=== PATIENT | male | born 1955 | race Caucasian/White ===

== ENCOUNTER 2018-11-05 14:36 | Emergency (ER) | payer BC, OTHER ==
[~2018-11-05] VITALS: Ht 170.2 cm; Wt 108.9 kg
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
[2018-11-05] MEDS ORDERED: PROP20TA5 PO (15:59)
--- NOTE | 2018-11-05 16:32 | Diagnostic Imaging Report ---
PROCEDURE: CT head without contrast. TECHNIQUE: Multiple contiguous axial images were obtained through the brain without the use of intravenous contrast. INDICATION: Left arm tremor. COMPARISON: There are no prior studies available for comparison. FINDINGS: There is no mass, shift of the midline, or hemorrhage to suggest an acute intracranial abnormality. The normal tentorial blush is noted. There is no sign of an asymmetric hyperdense vessel. The ventricles are not abnormally dilated. There is cortical atrophy present. The degree of atrophy is consistent with the patient's age. The bone windows show no sign of a fracture or of a destructive lesion. The orbits and sinuses were not visualized in their entirety. Where visualized, there is no acute abnormality. IMPRESSION: 1. There is no evidence for an acute intracranial abnormality. 2. If clinical concern regarding an underlying abnormality persists, then MRI would be recommended for further study. 3. These results were discussed with Nader Sandoval APRN. Dictated by: Dictated on workstation # [id number]
[2018-11-05 16:52] VITALS: BP 139/84
== END 2018-11-05 16:52 | disposition home or self-care (01) ==
LOC: ER 14:38
DX: R25.1 Tremor, unspecified (principal); I10 Essential (primary) hypertension; K21.9 Gastro-esophageal reflux disease without esophagitis; Z90.49 Acquired absence of other specified parts of digestive tract
CPT/HCPCS: 70450

== ENCOUNTER → 2018-12-14 | Outpatient (CLI) | payer BC ==
[~2018-12-14] MED LIST: GADOBUTROL 10 MMOL/10 ML (GADAVIST) VIAL IV ONE; PROP20TA5 PO
[2018-12-14 15:05] LABS: BUN/CREATININE RATIO 16; CREATININE SERUM 0.89 MG/DL (0.60-1.30); GFR ESTIMATED > 60
--- NOTE | 2018-12-14 15:30 | Diagnostic Imaging Report ---
PROCEDURE: MR imaging of the brain without contrast. TECHNIQUE: Multiplanar, multisequence MR imaging of the brain was performed without contrast. INDICATION: Left arm and left shoulder pain. COMPARISON: No prior MRI studies are available for comparison. FINDINGS: The ventricles and sulci are within normal limits. No sulcal effacement or midline shift is seen. No acute intra-axial or extra-axial hemorrhage is identified. No diffusion restriction is seen. The normal expected flow-voids within the carotid siphons are identified. The corpus callosum is unremarkable. The sella and parasellar structures are unremarkable. IMPRESSION: Unremarkable noncontrast CT of the brain. No acute abnormality is identified. Dictated by: Dictated on workstation # [id number]
== END ==
LOC: RAD 14:17
PROVIDERS: ATTEND Psychiatry & Neurology Neurology
DX: R53.1 Weakness (principal); R20.2 Paresthesia of skin
CPT/HCPCS: 36415; 70551; 82565; 84520

== ENCOUNTER → 2020-12-17 | Outpatient (CLI) | payer BC ==
[~2020-12-17] MED LIST changes: -GADOBUTROL 10 MMOL/10 ML (GADAVIST) VIAL IV ONE
--- NOTE | 2020-12-17 11:37 | Diagnostic Imaging Report ---
INDICATION: Cough. Shortness of breath. No previous for comparison. FINDINGS: PA and lateral views. The lungs are well-aerated and clear. The heart is not enlarged. No pulmonary edema or hilar adenopathy. No pneumothorax or pleural effusion. No bony abnormalities. IMPRESSION: Normal PA and lateral chest. Dictated by: Dictated on workstation # [id number]
== END ==
LOC: RAD FS 11:06
PROVIDERS: ATTEND Nurse Practitioner Family
DX: R05 Cough (principal); R06.02 Shortness of breath; R06.00 Dyspnea, unspecified
CPT/HCPCS: 71046

== ENCOUNTER → 2021-05-17 | Outpatient (CLI) | payer BC ==
--- NOTE | 2021-05-17 10:05 | Diagnostic Imaging Report ---
INDICATION: Fracture followup. EXAMINATION: Right ankle on 05/17/2021. COMPARISON: 05/03/2021. FINDINGS: Three views of the ankle redemonstrate a transverse fracture through the distal 1/3 of the fibula without evidence for healing. No callus formation is seen. The alignment is similar to the previous exam. The remaining osseous structures are intact. The ankle mortise is preserved. IMPRESSION: Stable appearance of the fibular fracture without changes of healing. Dictated by: Dictated on workstation # [id number]
--- NOTE | 2021-05-17 10:14 | Diagnostic Imaging Report ---
INDICATION: Nondisplaced Fx of medial malleolus of left tibia. COMPARISON: None. FINDINGS: Three views of the left ankle were obtained. There is no acute fracture or dislocation. No focal osseous lesions are seen. The surrounding soft tissue structures are unremarkable. There are no radiopaque foreign bodies. IMPRESSION: 1. Unremarkable radiographic exam of the left ankle. Dictated by: Dictated on workstation # [id number]
== END ==
LOC: RAD FS 08:29
PROVIDERS: ATTEND Nurse Practitioner
DX: S82.831D Other fracture of upper and lower end of right fibula, subsequent encounter for closed fracture with routine healing (principal); S82.55XD Nondisplaced fracture of medial malleolus of left tibia, subsequent encounter for closed fracture with routine healing; X58.XXXD Exposure to other specified factors, subsequent encounter
CPT/HCPCS: 73610

== ENCOUNTER → 2021-06-07 | Outpatient (CLI) | payer BC ==
--- NOTE | 2021-06-07 10:36 | Diagnostic Imaging Report ---
INDICATION: Fracture. Followup. COMPARISON: 05/17/2021. FINDINGS: Multiple radiographic views of the bilateral ankles were obtained. Again identified is an obliquely oriented fracture of the distal fibular shaft. There is slight offset of the fracture fragments. Overall, the alignment is stable. No new acute fracture or dislocation of the right ankle is seen. The joint spaces are maintained. No unexpected radiopaque foreign bodies are seen. No acute fracture or dislocation of the left ankle is identified. The osseous structures are intact. The joint spaces are maintained. No unexpected radiopaque foreign bodies are seen. Note is made of calcified arteriosclerosis. IMPRESSION: 1. Stable appearing nonacute fracture of the distal right fibula. 2. No new acute fracture or dislocation of the left ankle. Dictated by: Dictated on workstation # [id number]
--- NOTE | 2021-06-07 10:52 | Diagnostic Imaging Report ---
INDICATION: Follow-up fracture. COMPARISON: 05/17/2021 FINDINGS: Frontal and lateral radiographic views of the bilateral tibia and fibula were obtained. Again identified is nonacute slightly oblique radial fracture of the distal fibular shaft. There is stable slight offset of the fracture fragments. There is no appreciable bridging osteophyte formation or other evidence of significant interval healing. No new acute fracture or dislocation of the right tibia or fibula is seen. Joint spaces are maintained. No acute fracture or dislocation of the left lower leg is seen. Osseous structures are intact. Joint spaces are maintained. No unexpected radiopaque foreign bodies are seen. IMPRESSION: 1. Redemonstration stable appearing nonacute fracture of the distal right fibula. 2. No new acute fracture or dislocation of the left lower leg. Dictated by: Dictated on workstation # [id number]
== END ==
LOC: RAD FS 09:39
PROVIDERS: ATTEND Nurse Practitioner
DX: S82.55XD Nondisplaced fracture of medial malleolus of left tibia, subsequent encounter for closed fracture with routine healing (principal); S82.831D Other fracture of upper and lower end of right fibula, subsequent encounter for closed fracture with routine healing; X58.XXXD Exposure to other specified factors, subsequent encounter

== ENCOUNTER → 2021-07-05 | Outpatient (CLI) | payer BC ==
--- NOTE | 2021-07-05 08:32 | Diagnostic Imaging Report ---
Indication: Fracture. Compared: 06/07/2021 Findings: The distal fibular shaft fracture is in stable alignment with a developing collar of callus and new bone formation consistent with its partial interval healing. No adverse interval development. Impression: Distal fibular fracture show some new bone formation and partial healing with stable alignment. Dictated by: Dictated on workstation # [id number]
== END ==
LOC: RAD FS 07:56
PROVIDERS: ATTEND Nurse Practitioner
DX: S82.831D Other fracture of upper and lower end of right fibula, subsequent encounter for closed fracture with routine healing (principal); S82.301D Unspecified fracture of lower end of right tibia, subsequent encounter for closed fracture with routine healing; X58.XXXD Exposure to other specified factors, subsequent encounter
CPT/HCPCS: 73610

== ENCOUNTER → 2021-08-03 | Outpatient (CLI) | payer BC ==
--- NOTE | 2021-08-03 16:15 | Diagnostic Imaging Report ---
INDICATION: Right ankle fracture. TECHNIQUE/COMPARISON: AP, oblique, and lateral views of the right ankle were obtained with comparison made to the study of 07/05/2021. FINDINGS: There has been a mild further increase in callus about the mildly displaced distal fibular shaft fracture; otherwise, no new fracture or malalignment is identified. IMPRESSION: Ongoing but incomplete healing of the distal fibular shaft fracture. No new abnormality is identified. Dictated by: Dictated on workstation # [id number]
== END ==
LOC: RAD FS 14:31
PROVIDERS: ATTEND Nurse Practitioner
DX: S82.831D Other fracture of upper and lower end of right fibula, subsequent encounter for closed fracture with routine healing (principal); S82.301D Unspecified fracture of lower end of right tibia, subsequent encounter for closed fracture with routine healing; X58.XXXD Exposure to other specified factors, subsequent encounter
CPT/HCPCS: 73610

== ENCOUNTER 2021-12-23 02:27 | Emergency (ER) | payer BC ==
[~2021-12-23] VITALS: Ht 175 cm; Wt 108.0 kg
[2021-12-23 02:30] VITALS: BP 166/91
--- NOTE | 2021-12-23 02:50 | ED Chest Pain ---
General Stated Complaint: CHEST PAIN Source: patient History of Present Illness Date Seen by Provider: Dec 23, 2021 Time Seen by Provider: 02:32 Initial Comments 66-year-old male presenting with complaints of chest pain between his shoulder blades. He states that this woke him up about half hour prior to arrival in the ED. The pain was not improving so he came in to be seen. He had something similar about 6 weeks ago but not come in to be seen. He had some mild nausea with the pain tonight. He has been having elevated blood pressures but he no longer takes blood pressure medication. He previously was on a low-dose blood pressure medication but when Dr. HERRING told him it was a really low dose he stopped taking it. He states that he had been on a CPR class earlier in the evening and when he woke up with the chest pain overnight he felt like he was having all the symptoms that they were describing during the CPR class. He states he has had prior cardiac cath done at [facility] a few years ago and was told that he had some narrowing or blockage in one vessel but it was no of bleeding blood vessel of his heart. He did not have any stenting. They recommended medical management. Since Dr. Bahena and the [facility] clinic closed on the left he has not really followed with a provider regularly. Timing/Duration: 1/2 hour Severity/Quality: moderate, sharp Location: back (Upper back between the shoulder blades) Radiation: no radiation Activities at Onset: sleep Prior CP/Workup: cardiac cath ASA po CUSHION FORMER: Yes NTG SL CUSHION FORMER: No Associated Symptoms: No abdominal pain, No back pain, No diaphoresis, No dizziness, No edema, No fatigue, No fever/chills, No headache; heartburn, nausea/vomiting (Mild nausea but no vomiting); No rash, No shortness of breath, No swelling/lump in chest, No syncope Allergies and Home Medications Allergies Uncoded Allergies: HEART CATH CONTRAST (Allergy, Unknown, 12/14/18) Patient Home Medication List Home Medication List Reviewed: Yes Propranolol HCl (Propranolol HCl) 20 Mg Tablet, 20 MG PO BID Prescribed by: OSBALDO ALONSO on 11/05/18 6818 Review of Systems Review of Systems Constitutional: No chills, No fever EENTM: No Symptoms Reported Respiratory: Denies Cough, Denies Shortness of Air, Denies SOA at Rest Cardiovascular: See HPI Gastrointestinal: See HPI Genitourinary: No Symptoms Reported Musculoskeletal: see HPI Skin: no symptoms reported; No rash Psychiatric/Neurological: Anxiety Past Zprsynb-Sbtggt-Fcfkap Hx Immunizations Up To Date Tetanus Booster (TDap): Unknown PED Vaccines UTD: Yes Seasonal Allergies Seasonal Allergies: No Past Medical History Surgeries: Yes (NECK, BACK) Appendectomy, Gallbladder, Orthopedic Respiratory: No Cardiac: Yes Hypertension Neurological: No Genitourinary: No Gastrointestinal: Yes Gastroesophageal Reflux Musculoskeletal: No Endocrine: No HEENT: No Cancer: No Psychosocial: No Integumentary: No Blood Disorders: No Physical Exam Vital Signs Vital Signs - First Documented 12/23/21 02:30 Temp 36.8 Pulse 78 Resp 19 B/P (MAP) 166/91 (116) Pulse Ox 98 O2 Delivery Room Air Capillary Refill : Height, Weight, BMI Height: 5'7.00" Weight: 240lbs. oz. 108.943770pr; BMI Method:Stated General Appearance: No Apparent Distress, WD/WN HEENT: PERRL/EOMI, Normal ENT Inspection, Pharynx Normal Neck: Full Range of Motion, Normal Inspection, Non Tender, Supple; No Carotid Bruit Respiratory: Chest Non Tender, Lungs Clear, Normal Breath Sounds, No Accessory Muscle Use, No Respiratory Distress Cardiovascular: Regular Rate, Rhythm, No Murmur, Normal Peripheral Pulses Gastrointestinal: Normal Bowel Sounds, No Pulsatile Mass, Non Tender, Soft Rectal: Deferred Extremity: Normal Capillary Refill, Normal Inspection, No Calf Tenderness, No Pedal Edema Neurologic/Psychiatric: Alert, Oriented x3 Skin: Normal Color, Warm/Dry Progress/Results/Core Measures Results/Orders Vital Signs/I&O 12/23/21 02:30 Temp 36.8 Pulse 78 Resp 19 B/P (MAP) 166/91 (116) Pulse Ox 98 O2 Delivery Room Air Progress Progress Note : Progress Note Advised patient that the initial EKG did not demonstrate any acute ST elevation or signs that he would need to be rushed to the [facility]. Counseled him that we would need to do blood work and chest x-ray to evaluate his heart, chest pain, and aorta. Patient refused and despite best efforts to discuss possible outcomes and results of additional testing and benefits of treatment and further evaluation, he refused anything further be done and wanted to sign out AMA. He voiced understanding that he could potentially still have a heart attack or problems with his heart or aorta on the could potentially take his life and kill him if not found and treated. However he still felt that this was more an issue with his back and having something out in his back. Patient did have an EKG as well as vital signs and exam. He had IV started having blood work drawn but further testing was not done as patient has signed out AMA. Initial ECG Impression Date: Dec 23, 2021 Initial ECG Impression Time: : Initial ECG Rate: 76 Initial ECG Rhythm: Normal Sinus Initial ECG Comparisson: No Previous ECG Available Comment Normal sinus rhythm with a heart rate of 76 bpm. DC interval [address] elevation. QT interval 404 ms with a QTc interval 455 ms. There is no prior tracing immediately available for comparison. Departure Impression Primary Impression: Left against medical advice Additional Impressions: Atypical chest pain Hypertension Qualified Codes: I10 - Essential (primary) hypertension Disposition: 07 AGAINST MEDICAL ADVICE Condition: Against Medical Advice Departure-Patient Inst. Referrals: GLEN HERRING DO (PCP/Family) Primary Care Physician KHRIS MALCOLM MD Dec 23, 2021 02:50
== END 2021-12-23 02:45 | disposition left against medical advice (07) ==
LOC: EDUNIT# 02:27 → ER FS 02:30
DX: R07.89 Other chest pain (principal); I10 Essential (primary) hypertension
CPT/HCPCS: 93005; 99285